=== PATIENT | female | born 1950 | race Caucasian/White ===

== ENCOUNTER 2020-07-09 20:20 | Emergency (ER) | payer MEDICARE ==
[~2020-07-09 20:20] MED LIST: AEROECLIPSE II1 EACH MC; ALBUTEROL2.5 MG/3 M INH; ARIMIDEX1 MG PO; ATROVENT HFA12.9 GM INH; CATAPRES0.1 MG PO; IPRATROPIU0.2 MG/1 M INH; LISINOPRIL20 MG PO; MORPHINE SULFAT15 M1 PO; NEURONTIN300 MG PO; NIZATIDINE150 MG PO; NORCO 5-325 TA1 EACH PO; PERCOCET 7.5-31 EACH PO; PROVENTIL HFA6.7 GM INH; ROBITUSSIN DM UD5 ML PO; TESSALON PERLE100 MG PO
[2020-07-09 21:59] LABS: HEMOGLOBIN 14.4 gm/dl (12.3-15.3); RED BLOOD COUNT 4.28 M/UL (4.00-5.10)
[2020-07-09 22:22] LABS: BUN/CREATININE RATIO 18 (0-10)
== END 2020-07-10 | disposition left against medical advice (07) ==
LOC: ER1 20:20
PROVIDERS: Emergency Medicine
DX: S01.81XA Laceration without foreign body of other part of head, initial encounter (principal); I10 Essential (primary) hypertension; J44.9 Chronic obstructive pulmonary disease, unspecified; F17.200 Nicotine dependence, unspecified, uncomplicated; Z90.89 Acquired absence of other organs; W22.8XXA Striking against or struck by other objects, initial encounter
CPT/HCPCS: 12002; 12013; 70450; 71045; 80053; 82550; 82553; 83690; 83735; 83874; 83880; 84100; 84484; 85025; 85610; 85730; 93005; 99284

== ENCOUNTER → 2021-01-16 | Outpatient (CLI) | payer BC | LOC: MAMO 09:00 | DX: Z12.31 Encounter for screening mammogram for malignant neoplasm of breast (principal); C50.812 Malignant neoplasm of overlapping sites of left female breast; C77.3 Secondary and unspecified malignant neoplasm of axilla and upper limb lymph nodes; Z17.0 Estrogen receptor positive status [ER+]; F32.9 Major depressive disorder, single episode, unspecified | CPT/HCPCS: 77063; 77067 ==

== ENCOUNTER 2021-01-24 11:14 | Emergency (ER) | payer BC ==
[2021-01-24] MEDS ORDERED: MOBIC15 MG PO (13:55)
== END 2021-01-24 14:10 | disposition home or self-care (01) ==
LOC: ER1 11:14
DX: S90.32XA Contusion of left foot, initial encounter (principal); J44.9 Chronic obstructive pulmonary disease, unspecified; F17.200 Nicotine dependence, unspecified, uncomplicated; I25.10 Atherosclerotic heart disease of native coronary artery without angina pectoris; I10 Essential (primary) hypertension; F17.210 Nicotine dependence, cigarettes, uncomplicated; W22.8XXA Striking against or struck by other objects, initial encounter
CPT/HCPCS: 73610; 73630; 99283

== ENCOUNTER 2021-02-18 09:52 | Emergency (ER) | payer BC ==
[~2021-02-18 09:52] MED LIST changes: +MOBIC15 MG PO
[2021-02-18] MEDS ORDERED: HYDROCODON-ACE1 EAC4 PO (11:37)
== END 2021-02-18 11:32 | disposition home or self-care (01) ==
LOC: ER1 09:52
DX: S52.502A Unspecified fracture of the lower end of left radius, initial encounter for closed fracture (principal); F17.200 Nicotine dependence, unspecified, uncomplicated; I10 Essential (primary) hypertension; K21.9 Gastro-esophageal reflux disease without esophagitis; W01.10XA Fall on same level from slipping, tripping and stumbling with subsequent striking against unspecified object, initial encounter; Y92.009 Unspecified place in unspecified non-institutional (private) residence as the place of occurrence of the external cause
CPT/HCPCS: 29125; 73110; 99283

== ENCOUNTER → 2021-03-29 | Outpatient (CLI) | payer MEDICARE ==
[~2021-03-29] MED LIST changes: +HYDROCODON-ACE1 EAC4 PO
== END ==
LOC: MRI 03-28 10:30
DX: R29.6 Repeated falls (principal); C50.812 Malignant neoplasm of overlapping sites of left female breast; C77.3 Secondary and unspecified malignant neoplasm of axilla and upper limb lymph nodes; Z17.0 Estrogen receptor positive status [ER+]; F32.9 Major depressive disorder, single episode, unspecified
CPT/HCPCS: 70553; A9577